=== PATIENT | male | born 1995 | race African-American/Black ===

== ENCOUNTER 2016-08-09 20:01 | Emergency (ER) | payer MEDICAID ==
[~2016-08-09] VITALS: Ht 170.2 cm; Wt 70.0 kg
[2016-08-09 22:00] VITALS: BP 139/91
[2016-08-09 22:28] LABS: BASOPHILS % 0.1 % (0.0-2.0); EOSINOPHILS % 0.1 % (0.0-5.0); HEMATOCRIT. 43.8 % (42.0-52.0); LYMPHOCYTES % 9.5 % (20.0-50.0); MEAN CORPUSCULAR HEMOGLOBIN 30.6 pg (28.0-32.0); MEAN CORPUSCULAR HGB CONC 34.3 g/dL (31.0-37.0); MEAN CORPUSCULAR VOLUME 89.3 fL (80.0-94.0); MEAN PLATELET VOLUME 9.1 fl (7.4-10.4); MONOCYTES % 8.5 % (2.0-8.0); NEUTROPHILS % 81.8 % (40.0-76.0); PLATELET 173 x1000/uL (130-400); RED BLOOD CELL COUNT 4.91 mill/uL (4.7-6.1); RED CELL DISTRIBUTION WIDTH 12.6 % (11.6-14.6); WHITE BLOOD COUNT 14.8 x1000/uL (4.5-11.0)
[2016-08-09 22:33] LABS: CHLORIDE 101 mEq/L (98-107); INDEX HEMOLYSI 1 (1-3); INDEX ICTERIC 1 (1-4); INDEX LIPEMIC 1 (1-3)
[2016-08-09 22:36] LABS: ALBUMIN 4.8 g/dL (3.4-5.0); ANION GAP 15; CALCIUM 9.5 mg/dL (8.5-10.1); CARBON DIOXIDE 25 mEq/L (21-32); UREA NITROGEN BLOOD 11 mg/dL (7-21)
[2016-08-09 22:39] LABS: ALANINE AMINOTRANSFERASE 61 IU/L (13-61); eGFR > 60 mL/min (>60)
== END 2016-08-09 23:18 | disposition home or self-care (01) ==
LOC: ER 20:13
DX: R56.9 Unspecified convulsions (principal); F12.10 Cannabis abuse, uncomplicated
CPT/HCPCS: 36415; 80053; 85025; 99284; Z7610